=== PATIENT | female | born 1990 | race Two or more races ===

== ENCOUNTER 2018-08-27 14:12 | Emergency (ER) | payer MEDICAID ==
[~2018-08-27] VITALS: Ht 167.6 cm; Wt 61.7 kg
[2018-08-27 14:24] VITALS: Ht 167.6 cm; Wt 61.7 kg
[2018-08-27 15:35] VITALS: BP 127/74
== END 2018-08-27 15:35 | disposition home or self-care (01) ==
LOC: ED 14:12
DX: B34.9 Viral infection, unspecified (principal)
CPT/HCPCS: J7613; J7644; Q0162